=== PATIENT | male | born 1930 | race Caucasian/White ===

== ENCOUNTER 2019-12-02 11:20 | Emergency (ER) | payer MEDICARE, OTHER ==
[~2019-12-02] VITALS: Ht 170.1 cm; Wt 100.0 kg
--- NOTE | 2019-12-02 11:45 | ED Chest Pain ---
General Chief Complaint: Chest Pain Stated Complaint: CP Source: patient, EMS, RN notes reviewed, EMS notes reviewed, caregiver History of Present Illness Date Seen by Provider: Dec 02, 2019 Time Seen by Provider: 11:41 Initial Comments This patient is a 88-year-old male presents to the emerge from for atypical type chest pain issues as his been occurring at night and lasting approximately 5-10 seconds. He's had this episode happened about 4-5 times in the past month. Patient denies shortness of breath any significant chest pain or any significant issues. 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 And has chronic lower leg extremity edema for the same. Patient is care home bound. Is not appear to be in acute distress this time. Patient's caregiver at the local facility called the clinic advised patient is homeless issues need to be seen and advised patien t to come to the ER for evaluation this does not appear to be an emergent issue. EKG at the bedside is unremarkable showing sinus rhythm with a rate of 58. We'll do medical screening exam and evaluate treat further. patient and caregiver and state understanding Timing/Duration: other (1 month) Severity/Quality: mild Radiation: no radiation Activities at Onset: none, rest Prior CP/Workup: non-cardiac ASA po ARC WELDER: Yes Allergies and Home Medications Allergies Coded Allergies: No Known Drug Allergies (Unverified , 12/02/19) Patient Home Medication List Home Medication List Reviewed: Yes Review of Systems Review of Systems Constitutional: No no symptoms reported; see HPI; No chills, No diaphoresis, No dizziness, No fever, No malaise, No weakness, No weight gain, No weight loss, No other EENTM: No No Symptoms Reported, No See HPI, No Blurred Vision, No Double Vi darwin, No Eye Pain, No Eye Tearing, No Ear Drainage, No Ear Pain, No Mouth Pain, No Mouth Swelling, No Nose Congestion, No Nose Pain, No Throat Pain, No Throat Swelling, No Other Respiratory: Denies No Symptoms Reported, Denies See HPI, Denies Cough, Denies Orthopnea, Denies Shortness of Air, Denies SOA With Exertion, Denies SOA at Rest, Denies Stridor, Denies Wheezing, Denies Other Cardiovascular: Denies No Symptoms Reported; See HPI, Chest Pain; Denies Edema, Denies Irregular Heart Rate, Denies Lightheadedness, Denies Palpitations, Denies Syncope, Denies Other Gastrointestinal: No Symptoms Reported, See HPI; Denies Abdomen Distended, Denies Abdominal Pain, Denies Blood Streaked Stools, Denies Constipated, Denies Diarrhea, Denies Difficulty Swallowing, Denies Nausea, Denies Poor Appetite, Denies Poor Fluid Intake, Denies Rectal Bleeding, Denies Vomiting, Denies Other Genitourinary: Denies No Symptoms Reported, Denies See HPI, Denies Burning, Denies Discharge, Denies Drainage, Denies Frequency, Denies Flank Pain, Denies Hematuria, Denies Incontinence, Denies Pain, Denies Urgency, Denies Other Musculoskeletal: No no symptoms reported, No see HPI, No back pain, No gout, No joint pain, No joint swelling, No muscle pain, No muscle stiffness, No muscle cramps, No muscle twitching, No muscle weakness, No neck pain, No other Skin: No no symptoms reported, No see HPI, No change in color, No change in hair/nails, No dryness, No hx of skin cancer, No lesions, No lumps, No pruritus, No rash, No other All Other Systems Reviewed Negative Unless Noted: Yes Past Oprrljq-Ivwokq-Tectqw Hx Patient Social History Recent Foreign Travel: Yes Physical Exam Vital Signs Vital Signs - First Documented 12/02/19 11:26 Temp 36.7 Pulse 58 Resp 14 B/P (MAP) 164/62 (96) Pulse Ox 97 O2 Delivery Room Air Capillary Refill : Height, Weight, BMI Height: '" Weight: lbs. oz. kg; BMI Method: General Appearance: No Apparent Distress, WD/WN HEENT: PERRL/EOMI, TMs Normal, Normal ENT Inspection, Pharynx Normal Neck: Full Range of Motion, Normal Inspection, Non Tender Respiratory: Chest Non Tender, Lungs Clear, Normal Breath Sounds, No Accessory Muscle Use, No Respiratory Distress Cardiovascular: Regular Rate, Rhythm, No Edema, No Gallop, No JVD, No Murmur, Normal Peripheral Pulses Gastrointestinal: Normal Bowel Sounds, No Organomegaly, No Pulsatile Mass, Non Tender Extremity: Normal Capillary Refill, Normal Inspection, Normal Range of Motion, Non Tender, No Calf Tenderness, No Pedal Edema, Swelling (Chronic) Progress/Results/Core Measures Results/Orders Lab Results Laboratory Tests Test 12/02/19 11:30 Range/Units White Blood Count 5.7 4.3-11.0 10^3/uL Red Blood Count 4.00 L 4.35-5.85 10^6/uL Hemoglobin 12.4 11.5-16.0 G/DL Hematocrit 38 35-52 % Mean Corpuscular Volume 95 80-99 FL Mean Corpuscular Hemoglobin 31 25-34 PG Mean Corpuscular Hemoglobin Concent 33 32-36 G/DL Red Cell Distribution Width 13.0 10.0-14.5 % Platelet Count 257 130-400 10^3/uL Mean Platelet Volume 9.6 7.4-10.4 FL Neutrophils (%) (Auto) 60 42-75 % Lymphocytes (%) (Auto) 23 12-44 % Monocytes (%) (Auto) 9 0-12 % Eosinophils (%) (Auto) 7 0-10 % Basophils (%) (Auto) 1 0-10 % Neutrophils # (Auto) 3.4 1.8-7.8 X 10^3 Lymphocytes # (Auto) 1.3 1.0-4.0 X 10^3 Monocytes # (Auto) 0.5 0.0-1.0 X 10^3 Eosinophils # (Auto) 0.4 H 0.0-0.3 10^3/uL Basophils # (Auto) 0.1 0.0-0.1 10^3/uL Sodium Level 140 135-145 MMOL/L Potassium Level 5.4 H 3.6-5.0 MMOL/L Chloride Level 102 98-107 MMOL/L Carbon Dioxide Level 26 21-32 MMOL/L Anion Gap 12 5-14 MMOL/L Blood Urea Nitrogen 36 H 7-18 MG/DL Creatinine 1.83 H 0.60-1.30 MG/DL Estimat Glomerular Filtration Rate 26 BUN/Creatinine Ratio 20 Glucose Level 110 H 70-105 MG/DL Calcium Level 9.5 8.5-10.1 MG/DL Troponin I < 0.30 <0.30 NG/ML Pro-B-Type Natriuretic Peptide 2074.0 H <75.0 PG/ML My Orders Orders - MEKA CENTENO MD Ekg Tracing (12/02/19 11:40) Chest 1 View Ap/Pa Only (12/02/19 11:40) Troponin I Fs (12/02/19 11:40) Probnp Fs (12/02/19 11:40) Basic Metabolic Panel (12/02/19 11:40) Cbc With Automated Diff (12/02/19 11:40) Vital Signs/I&O 12/02/19 12/02/19 11:26 11:26 Temp 36.7 Pulse 58 Resp 14 B/P (MAP) 164/62 (96) Pulse Ox 97 O2 Delivery Room Air Room Air Progress Progress Note : Time: 12:24 Progress Note Negative evaluation in the emergency department. Patient does have a heart murmur which is chronic and chronic lower should be swelling and currently takes amlodipine that also causes swelling. Patient has negative chest x-ray negative EKG negative troponin. Did discuss at length with patient about his negative evaluation. Advised patient follow with primary care physician probably scheduled outpatient stress test of needed her further evaluation. Patient states understanding patient's discharged home with family Initial ECG Impression Date: Dec 02, 2019 Initial ECG Impression Time: 11:24 Initial ECG Rate: 58 Initial ECG Rhythm: S.Dimitri Initial ECG Intervals: Normal Initial ECG Impression: Nonspecific Changes Comment Sinus rhythm heart rate 58 nonspecific EKG changes nondiagnostic EKG Departure Impression Primary Impression: Chest pain Additional Impression: Murmur Disposition: 01 HOME, SELF-CARE Condition: Stable Departure-Patient Inst. Patient Instructions: Chest Pain That Is Not Caused by the Heart (DC), Chest Pain (DC) Add. Discharge Instructions: Continue all medications. Elevated lower extremities when necessary as needed. Use compression stockings as needed. YOUR primary care physician for further evaluation. All discharge instructions reviewed with patient and/or family. Voiced understanding. MEKA CENTENO MD Dec 02, 2019 11:45
[2019-12-02 11:51] LABS: HEMATOCRIT 38 % (35-52); HEMOGLOBIN 12.4 G/DL (11.5-16.0); MEAN CORPUSCULAR HEMOGLOBIN 31 PG (25-34); MEAN CORPUSCULAR HGB CONC 33 G/DL (32-36); MEAN CORPUSCULAR VOLUME 95 FL (80-99); WHITE BLOOD COUNT 5.7 10^3/uL (4.3-11.0)
[2019-12-02 11:52] LABS: BASOPHILS # (AUTO) 0.1 10^3/uL (0.0-0.1); BASOPHILS % (AUTO) 1 % (0-10); EOSINOPHILS # (AUTO) 0.4 10^3/uL (0.0-0.3); EOSINOPHILS % (AUTO) 7 % (0-10); LYMPHOCYTES # (AUTO) 1.3 X 10^3 (1.0-4.0); LYMPHOCYTES % (AUTO) 23 % (12-44); MEAN PLATELET VOLUME 9.6 FL (7.4-10.4); MONOCYTES # (AUTO) 0.5 X 10^3 (0.0-1.0); MONOCYTES % (AUTO) 9 % (0-12); NEUTROPHILS # (AUTO) 3.4 X 10^3 (1.8-7.8); NEUTROPHILS % (AUTO) 60 % (42-75); PLATELET COUNT 257 10^3/uL (130-400)
[2019-12-02 12:12] LABS: BUN/CREATININE RATIO 20; CALCIUM 9.5 MG/DL (8.5-10.1); CARBON DIOXIDE 26 MMOL/L (21-32); CHLORIDE 102 MMOL/L (98-107); CREATININE SERUM 1.83 MG/DL (0.60-1.30); GFR ESTIMATED 26; GLUCOSE 110 MG/DL (70-105); SODIUM 140 MMOL/L (135-145)
[2019-12-02 12:13] LABS: POTASSIUM 5.4 MMOL/L (3.6-5.0)
--- NOTE | 2019-12-02 12:16 | Diagnostic Imaging Report ---
INDICATION: Chest pain. TECHNIQUE: Single view chest 11:51 AM. CORRELATION STUDY: None FINDINGS: Given technique, heart size, mediastinum and vasculature overall appear to be within normal limits. Chronic appearing changes about the lung parenchyma. No consolidating infiltrate. Slightly elevated right hemidiaphragm likely of no significance. There is advanced degenerative change of the shoulders with prominent osteophyte inferiorly of the right humeral head. IMPRESSION: 1. Negative for acute abnormality of the chest. Dictated by: Dictated on workstation # [id number]
[2019-12-02 12:58] VITALS: BP 155/89
== END 2019-12-02 12:58 | disposition home or self-care (01) ==
LOC: ER FS 11:29 → EDSEX 11:29 → ER FS 12:58
DX: R07.89 Other chest pain (principal); R01.1 Cardiac murmur, unspecified
CPT/HCPCS: 36415; 71045; 80048; 83880; 84484; 85025; 93005